=== PATIENT | male | born 1995 | race Caucasian/White ===

== ENCOUNTER 2016-09-09 22:33 | Emergency (ER) | payer OTHER ==
--- NOTE | 2016-09-10 00:13 | ED ---
Skin/Abscess/FB HPI - General Chief complaint: Skin/Abscess/Foreign Body Stated complaint: Male Time Seen by Provider: 09/09/16 23:54 Source: patient, RN notes reviewed Mode of arrival: ambulatory Limitations: no limitations - History of Present Illness Initial comments: 21-year-old male presents emergency Department chief complaint rectal problem. Patient states that he felt was abnormal with his elbow down her leg. Patient states he sat down and felt a bug crawled up slightly into his whole. Patient states he just felt some irritation, itching that region. Patient states this only started today and has not had any ongoing itching at nighttime. He has no history of worse. Patient denies abdominal pain, rectal bleeding, dysuria, hematuria. Denies any fevers or chills. - Related Data Previous Rx's Medication Instructions Recorded Hydrocortisone [Anusol-Hc] 1 applic RECTAL BID #30 gm 09/10/16 Allergies Allergy/AdvReac Type Severity Reaction Status Date / Time No Known Allergies Allergy Verified 09/09/16 23:25 Review of Systems ROS Statement: Those systems with pertinent positive or pertinent negative responses have been documented in the HPI. ROS Other: All systems not noted in ROS Statement are negative. Past Medical History Past Medical History: No Reported History History of Any Multi-Drug Resistant Organisms: None Reported Past Surgical History: No Surgical Hx Reported Past Psychological History: No Psychological Hx Reported Smoking Status: Current every day smoker Past Alcohol Use History: None Reported Past Drug Use History: None Reported General Exam Limitations: no limitations General appearance: alert, in no apparent distress Respiratory exam: Present: normal lung sounds bilaterally. Absent: respiratory distress, wheezes, rales, rhonchi, stridor Cardiovascular Exam: Present: regular rate, normal rhythm, normal heart sounds. Absent: systolic murmur, diastolic murmur, rubs, gallop, clicks GI/Abdominal exam: Present: soft, normal bowel sounds. Absent: distended, tenderness, guarding, rebound, rigid Rectal exam: Present: hemorrhoids, other (No foreign bodies no insects noted). Absent: normal inspection (Appears to be a small tear in the 12 o'clock position ), mass, tenderness Course Vital Signs 09/09/16 22:45 Temperature 98.0 F Pulse Rate 125 H Respiratory 20 Rate Blood Pressure 120/63 O2 Sat by Pulse 98 Oximetry Medical Decision Making - Medical Decision Making 21-year-old male present emergency department for rectal palm. Patient believed that he had something in his rectum. Patient's exam was negative for this. Patient does have a small hemorrhage small fissure-type structure. Patient will be given Anusol return parameters were discussed. Disposition Clinical Impression: Rectal itching, External hemorrhoid Disposition: HOME SELF-CARE Condition: Stable Instructions: Hemorrhoids (ED) Additional Instructions: Please return to the Emergency Department if symptoms worsen or any other concerns. Prescriptions: Hydrocortisone [Anusol-Hc] 1 applic RECTAL BID #30 gm Referrals: Maricarmen Vivas MD [Primary Care Provider] - 1-2 days Time of Disposition: 00:13
[2016-09-10 00:56] VITALS: BP 109/70; PULSE 84; RESP 18; TEMP 98.3
== END 2016-09-10 00:55 | disposition home or self-care (01) ==
LOC: EC 22:33
DX: K64.4 Residual hemorrhoidal skin tags (principal); R29.898 Other symptoms and signs involving the musculoskeletal system; F17.200 Nicotine dependence, unspecified, uncomplicated
CPT/HCPCS: 99283

== ENCOUNTER 2018-08-31 14:41 | Emergency (ER) | payer OTHER ==
[2018-08-31 14:45] VITALS: BP 112/71; PULSE 88; RESP 16; TEMP 97.9
--- NOTE | 2018-08-31 15:11 | XR ---
EXAMINATION TYPE: XR knee complete RT DATE OF EXAM: 08/31/2018 CLINICAL HISTORY: Right knee popping injury with pain. TECHNIQUE: Three views of the right knee are obtained. COMPARISON: Right knee x-ray July 10, 2011. FINDINGS: There is no acute fracture/dislocation evident in right knee. The tri-compartment joint s paces appear within normal limits. Overlying clothing or enhance material is seen at distal femur lev el. IMPRESSION: There is no acute fracture or dislocation in the right knee.
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
== END 2018-08-31 15:50 | disposition home or self-care (01) ==
LOC: EC 14:41
DX: M23.8X1 Other internal derangements of right knee (principal); F17.200 Nicotine dependence, unspecified, uncomplicated
CPT/HCPCS: 73562; 99284; L1830

== ENCOUNTER 2018-09-15 16:49 | Emergency (ER) | payer OTHER ==
[2018-09-15 17:14] VITALS: BP 125/80; PULSE 79; RESP 18; TEMP 98.4
--- NOTE | 2018-09-15 17:38 | ED ---
General Adult HPI - General Chief complaint: Extremity Injury, Upper Stated complaint: Arm numb/donated blood yesterday Time Seen by Provider: 09/15/18 17:14 Source: patient, RN notes reviewed, old records reviewed Mode of arrival: ambulatory Limitations: no limitations - History of Present Illness Initial comments: 23-year-old male patient with no pertinent past medical history presents to ED with pain in his right antecubital region. Patient reports that yesterday he donated plasma. Patient reports that after plasma donation he had some mild swelling and bruising at the location of the IV. Pt states that today he has a mild amount of pain in this region, but says the swelling and brusing have improved. Pt denies any other complaints. Pt has full active ROM of hand, full sensation. Systemic: Pt denies fatigue, myalgia, fever/chills, rash. Pt denies weakness, night sweats, weight loss. Neuro: Pt denies headache, visual disturbances, syncope or pre-syncope. HEENT: Pt denies ocular discharge or irritation, otalgia, rhinorrhea, pharyngitis or notable lymphadenopathy. Cardiopulmonary: Pt denies chest pain, SOB, heart palpitations, dyspnea on exertion. Abdominal/GI: Pt denies abdominal pain, n/v/d. : Pt denies dysuria, burning w/ urination, frequency/urgency. Denies new onset urinary or bowel incontinence. MSK: Pt denies myalgia, loss of strength or function in extremities. Neuro: Pt denies new onset weakness, paresthesias. - Related Data Previous Rx's Medication Instructions Recorded Hydrocortisone [Anusol-Hc] 1 applic RECTAL BID #30 gm 09/10/16 Ibuprofen 600 mg PO TID #20 tablet 08/31/18 Allergies Allergy/AdvReac Type Severity Reaction Status Date / Time No Known Allergies Allergy Verified 08/31/18 14:45 Review of Systems ROS Statement: Those systems with pertinent positive or pertinent negative responses have been documented in the HPI. ROS Other: All systems not noted in ROS Statement are negative. Past Medical History Past Medical History: No Reported History History of Any Multi-Drug Resistant Organisms: None Reported Past Surgical History: No Surgical Hx Reported Past Psychological History: No Psychological Hx Reported Smoking Status: Current every day smoker Past Alcohol Use History: Occasional Past Drug Use History: None Reported General Exam - General Exam Comments Initial Comments: Constitutional: NAD, AOX3, Pt has pleasant affect. HEENT: NC/AT, trachea midline, neck supple, no lymphadenopathy. Posterior pharynx non erythematous, without exudates. External ears appear normal, without discharge. Mucous membranes moist. Eyes PERRLA, EOM intact. There is no scleral icterus. No pallor noted. Cardiopulmonary: RRR, no murmurs, rubs or gallops, no JVD noted. Lungs CTAB in anterior and posterior mackay. No peripheral edema. Abdominal exam: Abdomen soft and non-distended. Abdomen non-tender to palpation in all 4 quadrants. Bowel sounds active in LLQ. No hepatosplenomegaly. No ecchymosis Neuro: CN II-XII grossly intact. No nuchal rigidity. MSK: Mild amount of ecchymoses noted in right antecubital region. No erythema, no edema, no palpable cords. Radial pulse +2. Sensation intact. Milk Condenser strength 5 out 5. No posterior calf tenderness bilaterally, homans sign negative bilaterally. Posterior tibialis and radial pulse +2 bilaterally. Sensation int act in upper and lower extremities. Full active ROM in upper and lower extremities, 5/5 stregnth. Limitations: no limitations Course Vital Signs 09/15/18 17:11 Temperature 98.4 F Pulse Rate 79 Respiratory 18 Rate Blood Pressure 125/80 O2 Sat by Pulse 100 Oximetry Medical Decision Making - Medical Decision Making 23-year-old male patient with no pertinent past medical history presents to ED with pain in his right antecubital region. Patient reports that yesterday he donated plasma. Patient reports that after plasma donation he had some mild swelling and bruising at the location of the IV. Pt states that today he has a mild amount of pain in this region, but says the swelling and brusing have improved. Pt denies any other complaints. Pt has full active ROM of hand, full sensation. Pt VSS, afebrile. Physical exam displayed: Mild amount of ecchymoses noted in right antecubital region. No erythema, no edema, no palpable cords. Radial pulse +2. Sensation intact. Milk Condenser strength 5 out 5. Patient will be discharged, will advise use warm compresses on region. Pt will continue to monitor, will return to ER if condition worsens in anyway. Disposition Clinical Impression: Ecchymosis of forearm Disposition: HOME SELF-CARE Condition: Stable Instructions (If sedation given, give patient instructions): Ecchymosis (ED) Additional Instructions: Patient to adhere to previously discussed treatment plan as directed. Patient to follow up with PCP in 1-2 days. Patient to return to ED if symptoms do not improve. May use warm compress. Patient continue to monitor. Please return to ER if conditions worsen anyway including but not limited to redness, swelling, worsening pain, decreased range of motion , significant numbness and tingling. Is patient prescribed a controlled substance at d/c from ED?: No Referrals: Maricarmen Vivas MD [Primary Care Provider] - 1-2 days
== END 2018-09-15 17:40 | disposition home or self-care (01) ==
LOC: EC 16:49
DX: T80.89XA Other complications following infusion, transfusion and therapeutic injection, initial encounter (principal); F17.200 Nicotine dependence, unspecified, uncomplicated; Y84.8 Other medical procedures as the cause of abnormal reaction of the patient, or of later complication, without mention of misadventure at the time of the procedure
CPT/HCPCS: 99283

== ENCOUNTER 2018-11-29 15:22 | Emergency (ER) | payer OTHER ==
--- NOTE | 2018-11-29 16:22 | XR ---
EXAMINATION TYPE: XR chest 2V DATE OF EXAM: 11/29/2018 COMPARISON: 11/17/2012 HISTORY: 23-year-old male with left-sided chest pain TECHNIQUE: PA and lateral views FINDINGS: The cardiomediastinal silhouette, aorta, and pulmonary vasculature are within normal limits. Mild per ibronchial cuffing is noted. No consolidation or pleural effusion. IMPRESSION: Mild peribronchial cuffing could reflect bronchitis or asthma. Otherwise, no acute cardiopulmonary pr ocess.
[2018-11-29] MEDS ORDERED: predniSONE 50 MG TAB PO STA (17:42)
[2018-11-29] MEDS ORDERED: IPRATROPIUM-ALBUTEROL 3 ML NEB INHALATION STA (17:42)
[2018-11-29] MEDS ORDERED: KETOROLAC 60 MG/2 ML VIAL IM STA (17:43)
[2018-11-29 18:40] LABS: Basophils % (A) 1 %; Eosinophils # (A) 0.2 k/uL (0-0.7); Eosinophils % (A) 2 %; HCT 39.3 % (39.0-53.0); Lymphocytes # (A) 2.6 k/uL (1.0-4.8); Lymphocytes % (A) 29 %; MCH 28.8 pg (25.0-35.0); MCV 87.3 fL (80.0-100.0); Mean Platelet Volume 6.5; Monocytes # (A) 0.5 k/uL (0-1.0); Monocytes % (A) 5 %; Neutrophils # (A) 5.3 k/uL (1.3-7.7); Neutrophils % (A) 60 %; Platelet Count 242 k/uL (150-450); RDW 13.8 % (11.5-15.5); WBC 8.8 k/uL (3.8-10.6)
[2018-11-29 18:57] LABS: African American GFR (CKD) >90 (>60 ml/min/1.73 sqM); Anion Gap 5 mmol/L; Blood Urea Nitrogen 6 mg/dL (9-20); Calcium 8.6 mg/dL (8.4-10.2); Carbon Dioxide 31 mmol/L (22-30); Chloride 102 mmol/L (98-107); Glucose 108 mg/dL (74-99); Potassium 3.9 mmol/L (3.5-5.1); Sodium 138 mmol/L (137-145)
--- NOTE | 2018-11-29 19:55 | ED ---
URI HPI - General Chief Complaint: Upper Respiratory Infection Stated Complaint: rib & chest pain/fever Time Seen by Provider: 11/29/18 16:00 Source: patient Mode of arrival: ambulatory Limitations: no limitations - History of Present Illness Initial Comments: The patient is a 23-year-old male who presents to emergency room with complaint of a pleuritic chest pain. The patient states for the past several days he's had shortness of breath and wheezing. He is an asthmatic. States that he does not have any albuterol medicine left in order to take a nebulizer treatment. States that he has been progressively getting worse. Today he developed a chest pain is located on the left side of his chest. It is worse with inspiration. States that he will have such significant coughing that he will have posttussive emesis. He denies production of phlegm. Admits to chills and fevers. No sick contacts or recent travel. Denies hemoptysis. Denies ripping or tearing sensation to his back. Denies any abdominal pain. Admits that mother has a history of DVTs. Denies headache, neck pain, abdominal pain or changes in his bowel or bladder habits. There are no other alleviating, precipitating or modifying factors - Related Data Home Medications Medication Instructions Recorded Confirmed Ibuprofen [Motrin Ib] 400 mg PO Q6H PRN 11/29/18 11/29/18 Oxymetazoline 0.05% Nasl [place] 1 spray EA NOSTRIL DAILY PRN 11/29/18 11/29/18 [Afrin 0.05% Nasal [place]] Previous Rx's Medication Instructions Recorded Acetaminophen-Codeine 300-30mg 1 tab PO Q6H PRN #8 tablet 11/29/18 [Tylenol #3] Albuterol Inhaler [Ventolin Hfa 1 - 2 puff INHALATION RT-Q6H PRN 11/29/18 Inhaler] #1 inhaler Albuterol Nebulized [Ventolin 2.5 mg INHALATION Q4H PRN #25 nebu 11/29/18 Nebulized] predniSONE 20 mg PO BID 5 Days #10 tab 11/29/18 Allergies Allergy/AdvReac Type Severity Reaction Status Date / Time No Known Allergies Allergy Verified 11/29/18 18:05 Review of Systems ROS Statement: Those systems with pertinent positive or pertinent negative responses have been documented in the HPI. ROS Other: All systems not noted in ROS Statement are negative. Past Medical History Past Medical History: No Reported History History of Any Multi-Drug Resistant Organisms: None Reported Past Surgical History: No Surgical Hx Reported Past Psychological History: No Psychological Hx Reported Smoking Status: Current every day smoker Past Alcohol Use History: Occasional Past Drug Use History: Marijuana General Exam Limitations: no limitations General appearance: alert, in no apparent distress Head exam: Present: atraumatic, normocephalic, normal inspection Eye exam: Present: normal appearance, PERRL, EOMI. Absent: scleral icterus, conjunctival injection, periorbital swelling ENT exam: Present: normal exam, mucous membranes moist Neck exam: Present: normal inspection. Absent: tenderness, meningismus, lymphadenopathy Respiratory exam: Present: normal lung sounds bilaterally, chest wall tenderness, other (poor inspiratory effort. Very shallow breathing). Absent: respiratory distress, wheezes, rales, rhonchi, stridor Cardiovascular Exam: Present: regular rate, normal rhythm, normal heart sounds. Absent: systolic murmur, diastolic murmur, rubs, gallop, clicks GI/Abdominal exam: Present: soft, normal bowel sounds. Absent: distended, tenderness, guarding, rebound, rigid Extremities exam: Present: normal inspection, full ROM, normal capillary refill. Absent: tenderness, pedal edema, joint swelling, calf tenderness Back exam: Present: normal inspection Neurological exam: Present: alert, oriented X3, CN II-XII intact Psychiatric exam: Present: normal affect, normal mood Skin exam: Present: warm, dry, intact, normal color. Absent: rash Course Vital Signs 11/29/18 11/29/18 11/29/18 15:41 19:18 19:31 Temperature 98.5 F Pulse Rate 96 96 91 Respiratory 18 Rate Blood Pressure 108/73 O2 Sat by Pulse 98 Oximetry 11/29/18 11/29/18 19:41 20:24 Temperature 98.3 F Pulse Rate 92 Respiratory 20 18 Rate Blood Pressure 110/76 O2 Sat by Pulse 98 Oximetry Medical Decision Making - Medical Decision Making The patient was placed into room 21. He does receive a DuoNeb breathing treatment. He also recieved Toradol 30 mg IM and 60 mg Prednisone PO. A chest x- ray which was performed demonstrates bronchitis versus asthma. I did conduct laboratory studies due to the patient's pleuritic chest pain with family history of DVT. The patient does have a negative d-dimer. He is PERC negative. This is discussed with the patient. I did discuss diagnosis, differential and treatment options. At this time patient is requesting something stronger for pain at home. He'll be given a limited supply of Tylenol threes. I did discuss side effect profile. The patient does sign an opiate start talking form. He will given an additional 5 day prescription for prednisone. I also refilled the patient's albuterol for his nebulizer. He will receive an albuterol inhaler p rescription. He is reevaluated and admits to improvement in his symptoms. He is to avoid taking NSAIDS with the steroids. He is to follow-up with his primary care physician within 2-4 days. Return to the ER for any new or worsening symptoms. The patient was in agreement to the treatment plan, he was discharged home in stable condition. - Differential Diagnosis acute asthma exacerbation, pleurisy, URI, acute chest pain - Lab Data Result diagrams: 11/29/18 18:15 11/29/18 18:15 Lab Results 11/29/18 11/29/18 11/29/18 Range/Units 18:15 18:15 18:15 WBC 8.8 (3.8-10.6) k/uL RBC 4.50 (4.30-5.90) m/uL Hgb 13.0 (13.0-17.5) gm/dL Hct 39.3 (39.0-53.0) % MCV 87.3 (80.0-100.0) fL MCH 28.8 (25.0-35.0) pg MCHC 33.0 (31.0-37.0) g/dL RDW 13.8 (11.5-15.5) % Plt Count 242 (150-450) k/uL Neutrophils % 60 % Lymphocytes % 29 % Monocytes % 5 % Eosinophils % 2 % Basophils % 1 % Neutrophils # 5.3 (1.3-7.7) k/uL Lymphocytes # 2.6 (1.0-4.8) k/uL Monocytes # 0.5 (0-1.0) k/uL Eosinophils # 0.2 (0-0.7) k/uL Basophils # 0.0 (0-0.2) k/uL D-Dimer 0.28 (<0.60) mg/L FEU Sodium 138 (137-145) mmol/L Potassium 3.9 (3.5-5.1) mmol/L Chloride 102 (98-107) mmol/L Carbon Dioxide 31 H (22-30) mmol/L Anion Gap 5 mmol/L BUN 6 L (9-20) mg/dL Creatinine 0.53 L (0.66-1.25) mg/dL Est GFR (CKD-EPI)AfAm >90 (>60 ml/min/1.73 sqM) Est GFR (CKD-EPI)NonAf >90 (>60 ml/min/1.73 sqM) Glucose 108 H (74-99) mg/dL Calcium 8.6 (8.4-10.2) mg/dL - EKG Data EKG Comments: EKG demonstrates a normal sinus rhythm with a ventricular rate of 75. TN interval 110. QRS 82. QTC 395. There are no ST segment elevations or depressions concerning for ischemic changes. Disposition Clinical Impression: Bronchitis, Cough, Asthmatic bronchitis Disposition: HOME SELF-CARE Condition: Stable Instructions (If sedation given, give patient instructions): Upper Respiratory Infection (ED) Additional Instructions: Follow-up with your primary care doctor in 2-4 days. Return to the emergency department for any new or worsening symptoms Prescriptions: predniSONE 20 mg PO BID 5 Days #10 tab Acetaminophen-Codeine 300-30mg [Tylenol #3] 1 tab PO Q6H PRN #8 tablet PRN Reason: pain Albuterol Inhaler [Ventolin Hfa Inhaler] 1 - 2 puff INHALATION RT-Q6H PRN #1 inhaler PRN Reason: Cough Albuterol Nebulized [Ventolin Nebulized] 2.5 mg INHALATION Q4H PRN #25 nebu PRN Reason: difficulty in breathing Is patient prescribed a controlled substance at d/c from ED?: Yes When asked, does pt state using other controlled substances?: No If prescribed controlled substance>3 days was MAPS reviewed?: Prescribed <3 Days If opioid is for acute pain is fill amount 7 days or less?: Yes If Rx opioid, was Start Talking consent form obtained?: Yes Referrals: Maricarmen Vivas MD [Primary Care Provider] - 1-2 days Time of Disposition: 19:55
[2018-11-29 20:25] VITALS: BP 110/76; PULSE 92; RESP 18; TEMP 98.3
== END 2018-11-29 20:25 | disposition home or self-care (01) ==
LOC: EC 15:22
DX: J45.909 Unspecified asthma, uncomplicated (principal); F17.200 Nicotine dependence, unspecified, uncomplicated
CPT/HCPCS: 36415; 94640; 93005; 85379; 80048; 85025; 71046; 99285; 96372; J1885; J7512

== ENCOUNTER 2019-01-29 10:25 | Emergency (ER) | payer OTHER ==
[2019-01-29 10:41] VITALS: RESP 18; TEMP 97.9
[2019-01-29] MEDS ORDERED: MECLIZINE 12.5 MG TAB PO STA (10:53)
[2019-01-29] MEDS ORDERED: ACETAMINOPHEN TAB 500 MG TAB PO STA (11:36)
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
[2019-01-29] MEDS ORDERED: KETOROLAC 30 MG/ML 1 ML VIAL IM STA (11:59)
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
[2019-01-29 12:40] VITALS: BP 131/80; PULSE 94
== END 2019-01-29 12:40 | disposition home or self-care (01) ==
LOC: EC 10:25
DX: S02.5XXA Fracture of tooth (traumatic), initial encounter for closed fracture (principal); M40.292 Other kyphosis, cervical region; F17.200 Nicotine dependence, unspecified, uncomplicated; V18.0XXA Pedal cycle driver injured in noncollision transport accident in nontraffic accident, initial encounter; Y93.55 Activity, bike riding; Y92.89 Other specified places as the place of occurrence of the external cause
CPT/HCPCS: 72125; 70486; 70450; 99283; 96372; J1885

== ENCOUNTER 2019-07-31 16:42 | Emergency (ER) | payer OTHER ==
[2019-07-31 16:47] VITALS: BP 142/83; PULSE 89; RESP 16; TEMP 98.5
[2019-07-31] MEDS ORDERED: DOXYCYCLINE 100 MG CAP PO STA (17:02)
[2019-07-31] MEDS ORDERED: ACET/COD 300 MG/30 MG STARTER PACK 6 TAB BTL PO STA (17:09)
--- NOTE | 2019-07-31 17:10 | ED ---
ENT HPI - General Chief complaint: ENT Stated complaint: Facial Swelling Time Seen by Provider: 07/31/19 16:48 Source: patient Mode of arrival: ambulatory Limitations: no limitations - History of Present Illness Initial comments: Patient is 24-year-old male presents emergency Department with a chief complaint of facial swelling. States the symptoms began about 3 days ago when he had a small pimple on his left eyebrow that gradually increased in severity. Patient denies any fevers or chills. Patient states his left nostril is not patent. Denies any headaches. Denies any pain with extraocular movements. Denies any blurry vision or discharge from the eye. Denies any sinus discharge. Denies taking any medication to alleviate the pain. - Related Data Home Medications Medication Instructions Recorded Confirmed Ibuprofen [Motrin Ib] 400 mg PO Q6H PRN 11/29/18 11/29/18 Oxymetazoline 0.05% Nasl [place] 1 spray EA NOSTRIL DAILY PRN 11/29/18 11/29/18 [Afrin 0.05% Nasal [place]] Previous Rx's Medication Instructions Recorded Acetaminophen-Codeine 300-30mg 1 tab PO Q6H PRN #8 tablet 11/29/18 [Tylenol #3] Albuterol Inhaler [Ventolin Hfa 1 - 2 puff INHALATION RT-Q6H PRN 11/29/18 Inhaler] #1 inhaler Albuterol Nebulized [Ventolin 2.5 mg INHALATION Q4H PRN #25 nebu 11/29/18 Nebulized] predniSONE [Deltasone] 20 mg PO BID 5 Days #10 tab 11/29/18 Penicillin V Potassium [Pen Vee K] 500 mg PO Q6H 10 Days #40 tablet 01/29/19 Doxycycline Monohydrate [Monodox] 100 mg PO Q12HR #20 cap 07/31/19 Allergies Allergy/AdvReac Type Severity Reaction Status Date / Time No Known Allergies Allergy Verified 07/31/19 16:47 Review of Systems ROS Statement: Those systems with pertinent positive or pertinent negative responses have been documented in the HPI. ROS Other: All systems not noted in ROS Statement are negative. Past Medical History Past Medical History: No Reported History History of Any Multi-Drug Resistant Organisms: None Reported Past Surgical History: No Surgical Hx Reported Past Psychological History: No Psychological Hx Reported Smoking Status: Current every day smoker Past Alcohol Use History: Occasional Past Drug Use History: Marijuana General Exam Limitations: no limitations General appearance: alert, in no apparent distress Head exam: Present: atraumatic, normocephalic, normal inspection, other (Left- sided facial swelling around the left eye eye and maxillary sinus.) Eye exam: Present: normal appearance, PERRL, EOMI Pupils: Present: normal accommodation ENT exam: Present: normal exam, normal oropharynx (No oral lesions. Mucous mucosa on the left side is soft and nontender), mucous membranes moist, TM's normal bilaterally, normal external ear exam Neck exam: Present: normal inspection, full ROM Respiratory exam: Present: normal lung sounds bilaterally Cardiovascular Exam: Present: regular rate, normal rhythm, normal heart sounds Extremities exam: Present: normal inspection, full ROM Back exam: Present: normal inspection, full ROM Neurological exam: Present: alert, oriented X3 Psychiatric exam: Present: normal affect, normal mood Skin exam: Present: warm, dry, intact, normal color Course Vital Signs 07/31/19 16:44 Temperature 98.5 F Pulse Rate 89 Respiratory 16 Rate Blood Pressure 142/83 O2 Sat by Pulse 99 Oximetry Medical Decision Making - Medical Decision Making Patient is a 24-year-old male presenting to the emergency room with a chief complaint of facial swelling. On exam patient does appear to have a small healing pimple on the left eyebrow that is most likely the next inoculation point which caused cellulitic changes around the left eye and left side of the face in the maxillary sinus. The area is slightly erythematous. Patient denies any pain with extraocular movements. PERRLA. And went to cover for MRSA with doxycycline. Patient given a single dose in the [place] discharged with a 10 day course of tetracycline. Vitals are stable. No dysphagia or odontophagia. Patient advised to take Benadryl to decrease some of the swelling and apply ice compress to the region. Return parameters were thoroughly discussed with patient was understanding and agreeable. Case discussed with physician. Disposition Clinical Impression: Swelling of left side of face Disposition: HOME SELF-CARE Condition: Stable Instructions (If sedation given, give patient instructions): Abscess (ED) Additional Instructions: Take prescribed medication as directed. Take [id number] Benadryl. Apply ice compress. Return to emergency department if symptoms worsen. Prescriptions: Doxycycline Monohydrate [Monodox] 100 mg PO Q12HR #20 cap Is patient prescribed a controlled substance at d/c from ED?: No Referrals: None,Stated [Primary Care Provider] - 1-2 days Time of Disposition: 17:10
== END 2019-07-31 17:19 | disposition home or self-care (01) ==
LOC: EC 16:42
DX: R22.0 Localized swelling, mass and lump, head (principal); L53.9 Erythematous condition, unspecified; F17.200 Nicotine dependence, unspecified, uncomplicated
CPT/HCPCS: 99283

== ENCOUNTER 2019-08-01 17:24 | Emergency (ER) | payer OTHER ==
[2019-08-01] MEDS ORDERED: AMPICILLIN-SULBACTAM 1.5 GM in SODIUM CHLORIDE 0.9% 50 ML IVPB STA (18:14)
[2019-08-01] MEDS ORDERED: SODIUM CHLORIDE 0.9% 1,000 ML IV SCH (18:15)
[2019-08-01] MEDS ORDERED: SODIUM CHLORIDE 0.9% 500 ML 500 ML IV SCH (18:15)
--- NOTE | 2019-08-01 18:21 | ED ---
General Adult HPI - General Chief complaint: Recheck/Abnormal Lab/Rx Stated complaint: facial swelling-revisit Time Seen by Provider: 08/01/19 17:48 Source: patient, RN notes reviewed Mode of arrival: ambulatory Limitations: no limitations - History of Present Illness Initial comments: Patient is a pleasant 24-year-old male presenting to the emergency Department with left facial swelling. Patient was seen yesterday. Symptoms have been occurring for several days. Patient states the swelling was more on the forehead however now is starting to proceed down the face. Patient states he is able to open his eyes however is difficult. Patient states there is discomfort. Patient believes he may have had a fever yesterday. No fevers today. No sore throat or cough or difficulty breathing. Patient has some mild right ear discomfort. - Related Data Home Medications Medication Instructions Recorded Confirmed Ibuprofen [Motrin Ib] 400 mg PO Q6H PRN 11/29/18 11/29/18 Oxymetazoline 0.05% Nasl [place] 1 spray EA NOSTRIL DAILY PRN 11/29/18 11/29/18 [Afrin 0.05% Nasal [place]] Previous Rx's Medication Instructions Recorded Acetaminophen-Codeine 300-30mg 1 tab PO Q6H PRN #8 tablet 11/29/18 [Tylenol #3] Albuterol Inhaler [Ventolin Hfa 1 - 2 puff INHALATION RT-Q6H PRN 11/29/18 Inhaler] #1 inhaler Albuterol Nebulized [Ventolin 2.5 mg INHALATION Q4H PRN #25 nebu 11/29/18 Nebulized] predniSONE [Deltasone] 20 mg PO BID 5 Days #10 tab 11/29/18 Penicillin V Potassium [Pen Vee K] 500 mg PO Q6H 10 Days #40 tablet 01/29/19 Doxycycline Monohydrate [Monodox] 100 mg PO Q12HR #20 cap 07/31/19 Allergies Allergy/AdvReac Type Severity Reaction Status Date / Time No Known Allergies Allergy Verified 08/01/19 17:31 Review of Systems ROS Statement: Those systems with pertinent positive or pertinent negative responses have been documented in the HPI. ROS Other: All systems not noted in ROS Statement are negative. Constitutional: Reports: as per HPI, chills Eyes: Denies: eye pain, vision change ENT: Reports: ear pain. Denies: dental pain Respiratory: Denies: cough Cardiovascular: Denies: chest pain Endocrine: Denies: fatigue Gastrointestinal: Denies: abdominal pain Genitourinary: Denies: dysuria Musculoskeletal: Denies: back pain Skin: Reports: as per HPI Neurological: Denies: headache Past Medical History Past Medical History: No Reported History History of Any Multi-Drug Resistant Organisms: None Reported Past Surgical History: No Surgical Hx Reported Past Psychological History: No Psychological Hx Reported Smoking Status: Current every day smoker Past Alcohol Use History: Occasional Past Drug Use History: Marijuana General Exam Limitations: no limitations General appearance: alert, in no apparent distress Head exam: Present: atraumatic Eye exam: Present: PERRL, EOMI, periorbital swelling (Mild left periorbital swelling however patient is able to open his eye. Left medial eyebrow with small abscess. No pain with extraocular muscle testing.) ENT exam: Present: normal oropharynx, TM's normal bilaterally, other (Poor dentition. No abscess. Mild to moderate upper lip swelling. Mild swelling bilateral maxillary region with mild tenderness.) Neck exam: Present: normal inspection Respiratory exam: Present: normal lung sounds bilaterally Cardiovascular Exam: Present: regular rate, normal rhythm GI/Abdominal exam: Present: soft. Absent: tenderness Extremities exam: Present: normal inspection Neurological exam: Present: alert, CN II-XII intact Psychiatric exam: Present: normal affect, normal mood Skin exam: Present: erythema ( mild left facial erythema) Course Vital Signs 08/01/19 08/01/19 17:29 19:38 Temperature 97.8 F Pulse Rate 133 H 95 Respiratory 20 16 Rate Blood Pressure 95/68 126/80 O2 Sat by Pulse 98 97 Oximetry Procedures - Incision & Drainage Consent Obtained: verbal consent Site: face I&D Cleaning Method: Betadine Needle Aspiration Performed?: Yes I&D Drainage Obtained: Pus Culture Obtained?: Yes Patient Tolerated Procedure: well, no complications Medical Decision Making - Medical Decision Making Patient reevaluated and slightly improved. Patient updated on results. Culture obtained. Patient offered admission however prefers to go home and denies admission. Patient is agreeable to close follow-up and agreeable to return if symptoms worsen. - Lab Data Result diagrams: 08/01/19 18:49 08/01/19 18:49 Lab Results 08/01/19 08/01/19 08/01/19 Range/Units 18:49 18:49 18:49 WBC 11.7 H (3.8-10.6) k/uL RBC 5.24 (4.30-5.90) m/uL Hgb 14.6 (13.0-17.5) gm/dL Hct 43.9 (39.0-53.0) % MCV 83.8 (80.0-100.0) fL MCH 27.9 (25.0-35.0) pg MCHC 33.2 (31.0-37.0) g/dL RDW 12.8 (11.5-15.5) % Plt Count 256 (150-450) k/uL Neutrophils % 64 % Lymphocytes % 26 % Monocytes % 5 % Eosinophils % 3 % Basophils % 1 % Neutrophils # 7.5 (1.3-7.7) k/uL Lymphocytes # 3.0 (1.0-4.8) k/uL Monocytes # 0.5 (0-1.0) k/uL Eosinophils # 0.4 (0-0.7) k/uL Basophils # 0.1 (0-0.2) k/uL Sodium 136 L (137-145) mmol/L Potassium 4.2 (3.5-5.1) mmol/L Chloride 99 (98-107) mmol/L Carbon Dioxide 29 (22-30) mmol/L Anion Gap 8 mmol/L BUN 9 (9-20) mg/dL Creatinine 0.57 L (0.66-1.25) mg/dL Est GFR (CKD-EPI)AfAm >90 (>60 ml/min/1.73 sqM) Est GFR (CKD-EPI)NonAf >90 (>60 ml/min/1.73 sqM) Glucose 92 (74-99) mg/dL Plasma Lactic Acid [place] 0.8 (0.7-2.0) mmol/L Calcium 9.5 (8.4-10.2) mg/dL Total Bilirubin 0.5 (0.2-1.3) mg/dL AST 23 (17-59) U/L ALT 11 (4-49) U/L Alkaline Phosphatase 87 (38-126) U/L Total Protein 6.9 (6.3-8.2) g/dL Albumin 4.5 (3.5-5.0) g/dL Disposition Clinical Impression: Cellulitis, face Disposition: HOME SELF-CARE Condition: Stable Instructions (If sedation given, give patient instructions): Cellulitis (ED) Additional Instructions: Please follow-up with primary care physician in the next day or 2 for recheck. Have primary care physician check culture results. Continue antibiotics. Return for fever, increased swelling, increased pain, increased redness, worsening symptoms or other concerns. Is patient prescribed a controlled substance at d/c from ED?: No Referrals: Maricarmen Vivas MD [REFERRING] - 1-2 days Time of Disposition: 20:08
[2019-08-01 19:03] LABS: Basophils # (A) 0.1 k/uL (0-0.2); Basophils % (A) 1 %; Eosinophils # (A) 0.4 k/uL (0-0.7); Eosinophils % (A) 3 %; HCT 43.9 % (39.0-53.0); HGB 14.6 gm/dL (13.0-17.5); Lymphocytes % (A) 26 %; MCH 27.9 pg (25.0-35.0); MCHC 33.2 g/dL (31.0-37.0); MCV 83.8 fL (80.0-100.0); Mean Platelet Volume 7.2; Monocytes # (A) 0.5 k/uL (0-1.0); Monocytes % (A) 5 %; Neutrophils # (A) 7.5 k/uL (1.3-7.7); Neutrophils % (A) 64 %; Platelet Count 256 k/uL (150-450); RBC 5.24 m/uL (4.30-5.90); RDW 12.8 % (11.5-15.5); WBC 11.7 k/uL (3.8-10.6)
[2019-08-01 19:08] LABS: ALT 11 U/L (4-49); AST 23 U/L (17-59); African American GFR (CKD) >90 (>60 ml/min/1.73 sqM); Albumin 4.5 g/dL (3.5-5.0); Alkaline Phosphatase 87 U/L (38-126); Anion Gap 8 mmol/L; Blood Urea Nitrogen 9 mg/dL (9-20); Calcium 9.5 mg/dL (8.4-10.2); Carbon Dioxide 29 mmol/L (22-30); Chloride 99 mmol/L (98-107); Glucose 92 mg/dL (74-99); Non-African American GFR(CKD) >90 (>60 ml/min/1.73 sqM); Potassium 4.2 mmol/L (3.5-5.1); Sodium 136 mmol/L (137-145); Total Bilirubin 0.5 mg/dL (0.2-1.3); Total Protein 6.9 g/dL (6.3-8.2)
[2019-08-01 20:47] VITALS: BP 119/81; PULSE 77; RESP 18; TEMP 99.3
== END 2019-08-01 20:48 | disposition home or self-care (01) ==
LOC: EC 17:24
DX: L03.211 Cellulitis of face (principal); F17.200 Nicotine dependence, unspecified, uncomplicated; Z53.20 Procedure and treatment not carried out because of patient's decision for unspecified reasons
CPT/HCPCS: 36415; 80053; 83605; 85025; 87040; 87070; 87205; 87077; 87186; 99283; 10160; 96365; 96366; J0295

== ENCOUNTER 2019-11-29 12:56 | Emergency (ER) | payer OTHER ==
[2019-11-29 13:20] VITALS: BP 105/69; PULSE 70; RESP 18; TEMP 98.1
[2019-11-29] MEDS ORDERED: DIPH,PERTUS(ACELL)TETVAC-LF 0.5 ML VIAL IM ONE (14:39)
[2019-11-29] MEDS ORDERED: SULFAMETH-TMP DS STARTER PACK 2 TAB BTL PO STA (14:39)
[2019-11-29] MEDS ORDERED: SULFAMETHOX-TMP 800-160MG 1 EACH TAB PO STA (14:39)
[2019-11-29] MEDS ORDERED: LIDOCAINE 1% INJ 10MG/ML (20 ML MDV) SQ STA (14:42)
--- NOTE | 2019-11-29 14:56 | ED ---
General Adult HPI - General Chief complaint: Skin/Abscess/Foreign Body Stated complaint: bite on Buttocks Time Seen by Provider: 11/29/19 14:29 Source: patient, RN notes reviewed, old records reviewed Mode of arrival: ambulatory Limitations: physical limitation - History of Present Illness Initial comments: 24-year-old male patient received a chief complaint of abscess left gluteal region. Patient stated this began 2 days ago. States that he sat down and felt a pinch on the left gluteal region. Reports localized pain. Denies any definite fevers at home nausea or vomiting. denies any other complaints. Systemic: Pt denies fatigue, fever/chills. Pt denies weakness, night sweats, weight loss. Neuro: Pt denies headache, visual disturbances, syncope or pre-syncope. HEENT: Pt denies ocular discharge or irritation, otalgia, rhinorrhea, pharyngitis or notable lymphadenopathy. Cardiopulmonary: Pt denies chest pain, SOB, heart palpitations, dyspnea on exertion. Abdominal/GI: Pt denies abdominal pain, n/v/d. : Pt denies dysuria, burning w/ urination, frequency/urgency. Denies new onset urinary or bowel incontinence. MSK: Pt denies myalgia, loss of strength or function in extremities. Neuro: Pt denies new onset weakness, paresthesias. - Related Data Previous Rx's Medication Instructions Recorded Cephalexin [Keflex] 500 mg PO Q6HR 7 Days #28 cap 11/29/19 Sulfamethox-Tmp 800-160Mg [Bactrim 1 tab PO Q12HR 7 Days #14 tab 11/29/19 DS 800-160 mg] Allergies Allergy/AdvReac Type Severity Reaction Status Date / Time No Known Allergies Allergy Verified 11/29/19 14:55 Review of Systems ROS Statement: Those systems with pertinent positive or pertinent negative responses have been documented in the HPI. ROS Other: All systems not noted in ROS Statement are negative. Past Medical History Past Medical History: No Reported History History of Any Multi-Drug Resistant Organisms: None Reported Past Surgical History: No Surgical Hx Reported Past Psychological History: No Psychological Hx Reported Smoking Status: Current every day smoker Past Alcohol Use History: Occasional Past Drug Use History: None Reported General Exam - General Exam Comments Initial Comments: Constitutional: NAD, AOX3, Pt has pleasant affect. HEENT: NC/AT, trachea midline, neck supple. External ears appear normal, without discharge. Mucous membranes moist. EOM intact. There is no scleral icterus. No pallor noted. Cardiopulmonary: RRR, no murmurs, rubs or gallops, no JVD noted. Lungs CTAB in anterior and posterior mack[place]. No peripheral edema. Abdominal exam: Abdomen soft and non-distended. Abdomen non-tender to palpation in all 4 quadrants. Neuro: CN II-XII grossly intact. No nuchal rigidity. No raccon eyes, no rudolph sign MSK: 3x3 cm area of erythema on the left gluteal region. No streaking. Mild fluctuance noted. Incision and drainage was attempted in 2 regions which did not display any purulent drainage. Limitations: physical limitation Course Vital Signs 11/29/19 13:14 Temperature 98.1 F Pulse Rate 70 Respiratory 18 Rate Blood Pressure 105/69 O2 Sat by Pulse 98 Oximetry Procedures - Incision & Drainage Consent Obtained: verbal consent, written consent Indication: left glutal abscess Site: buttock (left) Size (cm): 3 Anesthetic Used: lidocaine 1% Amount (mLs): 3 I&D Cleaning Method: Chloroprep, Alcohol Wipe Scalpel Used: #11 I&D Drainage Obtained: Blood Culture Obtained?: No Patient Tolerated Procedure: well Medical Decision Making - Medical Decision Making 24-year-old male patient presents ED for evaluation of possible abscess left gluteal region. Physical exam displayed a fever at the region of erythema with some fluctuance noted. Incision and drainage was attempted did not display any purulent drainage. Patient will be discharged with close outpatient follow-up strict return precautions Keflex and Bactrim. Case discussed and pt seen by Dr. Padilla. Disposition Clinical Impression: Abscess Disposition: HOME SELF-CARE Condition: Stable Instructions (If sedation given, give patient instructions): Abscess (ED) Additional Instructions: Use warm compresses. Take antibiotics as directed. Follow-up with primary care provider tomorrow. If symptoms do not improve within 24-36 hours return to emergency department. If you start developing systemic symptoms like fevers and chills nausea and vomiting return to emergency department. Prescriptions: Sulfamethox-Tmp 800-160Mg [Bactrim DS 800-160 mg] 1 tab PO Q12HR 7 Days #14 tab Cephalexin [Keflex] 500 mg PO Q6HR 7 Days #28 cap Is patient prescribed a controlled substance at d/c from ED?: No Referrals: None,Stated [Primary Care Provider] - 1-2 days Maricarmen Vivas MD [REFERRING] - 1-2 days
[2019-11-29] MEDS ORDERED: CEPHALEXIN 500MG STARTER PACK 4 CAP BTL PO STA (15:19)
== END 2019-11-29 15:36 | disposition home or self-care (01) ==
LOC: EC 12:56
DX: L02.31 Cutaneous abscess of buttock (principal); Z23 Encounter for immunization; F17.200 Nicotine dependence, unspecified, uncomplicated
CPT/HCPCS: 90715; 90471; 99283; 10060; J2001

== ENCOUNTER 2019-12-07 17:22 | Emergency (ER) | payer OTHER ==
[2019-12-07] MEDS ORDERED: ONDANSETRON 4 MG/2 ML VIAL IVP STA (17:45)
[2019-12-07] MEDS ORDERED: SODIUM CHLORIDE 0.9% 1,000 ML IV STA (17:46)
[2019-12-07 17:58] LABS: Basophils # (A) 0.1 k/uL (0-0.2); Basophils % (A) 1 %; Eosinophils # (A) 0.3 k/uL (0-0.7); Eosinophils % (A) 3 %; HCT 43.6 % (39.0-53.0); HGB 14.3 gm/dL (13.0-17.5); Lymphocytes # (A) 4.5 k/uL (1.0-4.8); Lymphocytes % (A) 54 %; MCH 27.9 pg (25.0-35.0); MCHC 32.9 g/dL (31.0-37.0); MCV 84.8 fL (80.0-100.0); Monocytes # (A) 0.4 k/uL (0-1.0); Monocytes % (A) 4 %; Neutrophils % (A) 35 %; Platelet Count 251 k/uL (150-450); RBC 5.14 m/uL (4.30-5.90); RDW 12.6 % (11.5-15.5); WBC 8.5 k/uL (3.8-10.6)
[2019-12-07 18:08] LABS: ALT 18 U/L (4-49); AST 38 U/L (17-59); African American GFR (CKD) >90 (>60 ml/min/1.73 sqM); Albumin 5.1 g/dL (3.5-5.0); Alkaline Phosphatase 109 U/L (38-126); Anion Gap 14 mmol/L; Blood Urea Nitrogen 12 mg/dL (9-20); Carbon Dioxide 20 mmol/L (22-30); Chloride 101 mmol/L (98-107); Glucose 83 mg/dL (74-99); Non-African American GFR(CKD) >90 (>60 ml/min/1.73 sqM); Potassium 3.6 mmol/L (3.5-5.1); Sodium 135 mmol/L (137-145); Total Bilirubin 0.6 mg/dL (0.2-1.3); Total Protein 7.3 g/dL (6.3-8.2)
[2019-12-07 19:39] VITALS: TEMP 97.7
[2019-12-07 19:41] VITALS: BP 120/64; PULSE 71; RESP 19
--- NOTE | 2019-12-07 20:07 | ED ---
General Adult HPI - General Chief complaint: Syncope Stated complaint: Syncope Time Seen by Provider: 12/07/19 17:38 Source: patient, RN notes reviewed, old records reviewed Mode of arrival: wheelchair Limitations: no limitations - History of Present Illness Initial comments: 24-year-old male patient presents to ED for evaluation of brief syncopal episode. Patient reports that he has not eaten or drank in before he went to work. 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 Patient reportedly began to feel very lightheaded and became nauseous had mackay of nausea and vomiting. Patient reports that he went down on one knee to compose himself and may have had a brief loss of consciousness for 1-2 seconds. Patient reports that he was then aroused by his coworker and he woke up. Denies any trauma to his head or his neck. Patient is complaining of some generalized weakness but denies any focal area of pain. Eyes any other complaints. Systemic: Pt denies fatigue, fever/chills, rash. Pt denies weakness, night sweats, weight loss. Neuro: Pt denies headache, visual disturbances, pre-syncope. HEENT: Pt denies ocular discharge or irritation, otalgia, rhinorrhea, pharyngitis or notable lymphadenopathy. Cardiopulmonary: Pt denies chest pain, SOB, heart palpitations, dyspnea on exertion. Abdominal/GI: Pt denies abdominal pain, n/v/d. : Pt denies dysuria, burning w/ urination, frequency/urgency. Denies new onset urinary or bowel incontinence. MSK: Pt denies myalgia, loss of strength or function in extremities. Neuro: Pt denies new onset weakness, paresthesias. - Related Data Previous Rx's Medication Instructions Recorded Cephalexin [Keflex] 500 mg PO Q6HR 7 Days #28 cap 11/29/19 Sulfamethox-Tmp 800-160Mg [Bactrim 1 tab PO Q12HR 7 Days #14 tab 11/29/19 DS 800-160 mg] Allergies Allergy/AdvReac Type Severity Reaction Status Date / Time No Known Allergies Allergy Verified 12/07/19 19:19 Review of Systems ROS Statement: Those systems with pertinent positive or pertinent negative responses have been documented in the HPI. ROS Other: All systems not noted in ROS Statement are negative. Past Medical History Past Medical History: No Reported History History of Any Multi-Drug Resistant Organisms: None Reported Past Surgical History: No Surgical Hx Reported Past Psychological History: No Psychological Hx Reported Smoking Status: Current every day smoker Past Alcohol Use History: Occasional Past Drug Use History: None Reported General Exam - General Exam Comments Initial Comments: Constitutional: NAD, AOX3, Pt has pleasant affect. HEENT: NC/AT, trachea midline, neck supple, no lymphadenopathy. Posterior pharynx non erythematous, without exudates. External ears appear normal, without discharge. Mucous membranes moist. Eyes PERRLA, EOM intact. There is no scleral icterus. No pallor noted. Cardiopulmonary: RRR, no murmurs, rubs or gallops, no JVD noted. Lungs CTAB in anterior and posterior mackay. No peripheral edema. Abdominal exam: Abdomen soft and non-distended. Abdomen non-tender to palpation in all 4 quadrants. Bowel sounds active in LLQ. No hepatosplenomegaly. No ecchymosis Neuro: CN II-XII intact. No nuchal rigidity. No raccon eyes, no rudolph sign, no hemotympanum. No cervical spinal tenderness. MSK: No posterior calf tenderness bilaterally, homans sign negative bilaterally. Posterior tibialis and radial pulse +2 bilaterally. Sensation intact in upper and lower extremities. Full active ROM in upper and lower extremities, 5/5 stregnth. Left gluteal region examined, abscess has resolved. Limitations: no limitations Course Vital Signs 12/07/19 12/07/19 12/07/19 17:25 19:30 19:35 Temperature 97.9 F 97.7 F Pulse Rate 84 68 71 Respiratory 16 21 19 Rate Blood Pressure 99/63 104/91 120/64 O2 Sat by Pulse 100 98 97 Oximetry Medical Decision Making - Medical Decision Making 24-year-old male patient presents to ED for evaluation of brief syncopal episode. Patient vital signs are stable, afebrile. Physical exam did not display acute pathology. Neurologic exam is intact. Laboratory investigations are non-impressive. Patient was administered 1 L of normal saline. One dose of Zofran. Patient is feeling much improved. Is asymptomatic. Eating and drinking in the room. Walk able to walk around the department without issue. I did see patient for an abscess on his left gluteal area on 11/28. I did examine this region and it appears the abscess has resolved. EKG is nonischemic. Patient will be discharged with follow-up with primary care provider and will return to ER if condition worsens. Case discussed with Dr. Walter. - Lab Data Result diagrams: 12/07/19 17:51 12/07/19 17:47 Lab Results 12/07/19 12/07/19 Range/Units 17:47 17:51 WBC 8.5 (3.8-10.6) k/uL RBC 5.14 (4.30-5.90) m/uL Hgb 14.3 (13.0-17.5) gm/dL Hct 43.6 (39.0-53.0) % MCV 84.8 (80.0-100.0) fL MCH 27.9 (25.0-35.0) pg MCHC 32.9 (31.0-37.0) g/dL RDW 12.6 (11.5-15.5) % Plt Count 251 (150-450) k/uL Neutrophils % 35 % Lymphocytes % 54 % Monocytes % 4 % Eosinophils % 3 % Basophils % 1 % Neutrophils # 3.0 (1.3-7.7) k/uL Lymphocytes # 4.5 (1.0-4.8) k/uL Monocytes # 0.4 (0-1.0) k/uL Eosinophils # 0.3 (0-0.7) k/uL Basophils # 0.1 (0-0.2) k/uL Sodium 135 L (137-145) mmol/L Potassium 3.6 (3.5-5.1) mmol/L Chloride 101 (98-107) mmol/L Carbon Dioxide 20 L (22-30) mmol/L Anion Gap 14 mmol/L BUN 12 (9-20) mg/dL Creatinine 0.87 (0.66-1.25) mg/dL Est GFR (CKD-EPI)AfAm >90 (>60 ml/min/1.73 sqM) Est GFR (CKD-EPI)NonAf >90 (>60 ml/min/1.73 sqM) Glucose 83 (74-99) mg/dL Calcium 10.0 (8.4-10.2) mg/dL Total Bilirubin 0.6 (0.2-1.3) mg/dL AST 38 (17-59) U/L ALT 18 (4-49) U/L Alkaline Phosphatase 109 (38-126) U/L Total Protein 7.3 (6.3-8.2) g/dL Albumin 5.1 H (3.5-5.0) g/dL - EKG Data -: EKG Interpreted by Me (and Dr. Walter ) EKG Comments: Ventricular rate 76, when necessary for 128, QRS 86, QT/QTC 374/420. Normal sinus rhythm sinus arrhythmia. Possible left atrial enlargement. No concern for acute ischemia at this time. Disposition Clinical Impression: Nausea and vomiting, Syncope Disposition: HOME SELF-CARE Condition: Stable Instructions (If sedation given, give patient instructions): Syncope (ED) Additional Instructions: Follow-up with primary care provider tomorrow. Return to ER if condition worsens in any way. Continue to drink lots of fluids. Is patient prescribed a controlled substance at d/c from ED?: No Referrals: None,Stated [Primary Care Provider] - 1-2 days Uriah Ayon [STAFF PHYSICIAN] - 1-2 days
== END 2019-12-07 20:32 | disposition home or self-care (01) ==
LOC: EC 17:22
DX: R11.2 Nausea with vomiting, unspecified (principal); R55 Syncope and collapse; R42 Dizziness and giddiness; F17.200 Nicotine dependence, unspecified, uncomplicated
CPT/HCPCS: 36415; 93005; 80053; 85025; 99284; 96374; 96361 ×2; J2405

== ENCOUNTER 2020-03-09 10:23 | Emergency (ER) | payer OTHER ==
[2020-03-09 10:41] VITALS: BP 123/79; PULSE 67; RESP 18; TEMP 98
[2020-03-09] MEDS ORDERED: Acetaminophen-Codeine 300-30mg TAB PO STA (10:55)
[2020-03-09] MEDS ORDERED: ACET/COD 300 MG/30 MG STARTER PACK 6 TAB BTL PO STA (10:55)
[2020-03-09] MEDS ORDERED: PENICILLIN VK 500MG STARTER 4 TAB BTL PO STA (10:55)
--- NOTE | 2020-03-09 10:56 | ED ---
General Adult HPI - General Chief complaint: Dental/Oral Stated complaint: mouth pain Time Seen by Provider: 03/09/20 10:45 Source: patient, RN notes reviewed, old records reviewed Mode of arrival: ambulatory Limitations: no limitations - History of Present Illness Initial comments: 24-year-old male patient presents to ED for evaluation of dental pain. Patient reports that he has poor dentition however today his tooth began really hurting. This is left upper incisor. Denies any other complaints. Denies any fevers. Systemic: Pt denies fatigue, fever/chills, rash. Pt denies weakness, night sweats, weight loss. Neuro: Pt denies headache, visual disturbances, syncope or pre-syncope. HEENT: Pt denies ocular discharge or irritation, otalgia, rhinorrhea, pharyngitis or notable lymphadenopathy. Cardiopulmonary: Pt denies chest pain, SOB, heart palpitations, dyspnea on exertion. Abdominal/GI: Pt denies abdominal pain, n/v/d. : Pt denies dysuria, burning w/ urination, frequency/urgency. Denies new onset urinary or bowel incontinence. MSK: Pt denies myalgia, loss of strength or function in extremities. Neuro: Pt denies new onset weakness, paresthesias. - Related Data Previous Rx's Medication Instructions Recorded Cephalexin [Keflex] 500 mg PO Q6HR 7 Days #28 cap 11/29/19 Sulfamethox-Tmp 800-160Mg [Bactrim 1 tab PO Q12HR 7 Days #14 tab 11/29/19 DS 800-160 mg] Penicillin V Potassium [Pen Vee K] 500 mg PO QID #40 tablet 03/09/20 Allergies Allergy/AdvReac Type Severity Reaction Status Date / Time No Known Allergies Allergy Verified 03/09/20 10:41 Review of Systems ROS Statement: Those systems with pertinent positive or pertinent negative responses have been documented in the HPI. ROS Other: All systems not noted in ROS Statement are negative. Past Medical History Past Medical History: No Reported History History of Any Multi-Drug Resistant Organisms: None Reported Past Surgical History: No Surgical Hx Reported Past Psychological History: No Psychological Hx Reported Smoking Status: Current every day smoker Past Alcohol Use History: Occasional Past Drug Use History: None Reported General Exam - General Exam Comments Initial Comments: Constitutional: NAD, AOX3, Pt has pleasant affect. HEENT: NC/AT, trachea midline, neck supple, no lymphadenopathy. External ears appear normal, without discharge. Mucous membranes moist. EOM intact. There is no scleral icterus. No pallor noted. Poor dentition is noted. Patient does have multiple teeth missing including there has complaint left upper incisor. There is some mild gum erythema. There is no drainable abscess. Cardiopulmonary: RRR, no murmurs, rubs or gallops, no JVD noted. Lungs CTAB in anterior and posterior mackay. No peripheral edema. Abdominal exam: Abdomen soft and non-distended. Neuro: CN II-XII grossly intact. No nuchal rigidity. MSK: Full active ROM in upper and lower extremities. Limitations: no limitations Course Vital Signs 03/09/20 10:37 Temperature 98 F Pulse Rate 67 Respiratory 18 Rate Blood Pressure 123/79 O2 Sat by Pulse 100 Oximetry Medical Decision Making - Medical Decision Making 24-year-old male patient presented to ED for chief complaint dental pain. Patient with a long history of poor dentition however this pain began getting worse today. Physical exam reveals poor dentition mild gum erythema no abscess. Patient has exposed nerve root. Patient will be discharged with analgesia Penicillin VK and dental as well as primary care follow-up. We return to ED with any worsening symptoms. Case discussed with Dr. Dinh. Disposition Clinical Impression: Pain, dental Disposition: HOME SELF-CARE Condition: Stable Instructions (If sedation given, give patient instructions): Toothache (ED) Additional Instructions: Take antibiotics as directed. Follow-up with dentist as soon as possible. Return to ER if any worsening symptoms. Prescriptions: Penicillin V Potassium [Pen Vee K] 500 mg PO QID #40 tablet Is patient prescribed a controlled substance at d/c from ED?: No Referrals: None,Stated [Primary Care Provider] - 1-2 days Uriah Ayon [STAFF PHYSICIAN] - 1-2 days
== END 2020-03-09 11:09 | disposition home or self-care (01) ==
LOC: EC 10:23
DX: K08.89 Other specified disorders of teeth and supporting structures (principal); K00.7 Teething syndrome; L53.9 Erythematous condition, unspecified; F17.200 Nicotine dependence, unspecified, uncomplicated
CPT/HCPCS: 99283

== ENCOUNTER 2020-04-10 11:21 | Emergency (ER) | payer OTHER ==
[2020-04-10 11:43] VITALS: BP 118/74; PULSE 85; RESP 18; TEMP 97.9
--- NOTE | 2020-04-10 12:18 | ED ---
ENT HPI - General Chief complaint: ENT Stated complaint: Runny nose/wants covid test Time Seen by Provider: 04/10/20 12:09 Source: patient, RN notes reviewed Mode of arrival: ambulatory Limitations: no limitations - History of Present Illness Initial comments: 25-year-old male presents emergency Department with chief complaint nasal congestion. Patient is here requesting coronavirus testing. Patient states that he is concernof his symptoms as well as his significant other is n. Patient states he was drinking this weekend sharing drinks in which people tested positive. Patient has no fevers no shortness breath no chest pain no other symptoms noted. - Related Data Previous Rx's Medication Instructions Recorded Cephalexin [Keflex] 500 mg PO Q6HR 7 Days #28 cap 11/29/19 Sulfamethox-Tmp 800-160Mg [Bactrim 1 tab PO Q12HR 7 Days #14 tab 11/29/19 DS 800-160 mg] Penicillin V Potassium [Pen Vee K] 500 mg PO QID #40 tablet 03/09/20 Allergies Allergy/AdvReac Type Severity Reaction Status Date / Time No Known Allergies Allergy Verified 03/09/20 10:41 Review of Systems ROS Statement: Those systems with pertinent positive or pertinent negative responses have been documented in the HPI. ROS Other: All systems not noted in ROS Statement are negative. Past Medical History Past Medical History: No Reported History History of Any Multi-Drug Resistant Organisms: None Reported Past Surgical History: No Surgical Hx Reported Past Psychological History: No Psychological Hx Reported Smoking Status: Current every day smoker Past Alcohol Use History: Occasional Past Drug Use History: None Reported General Exam Limitations: no limitations General appearance: alert, in no apparent distress Head exam: Present: atraumatic, normocephalic, normal inspection Eye exam: Present: normal appearance, PERRL, EOMI. Absent: scleral icterus, conjunctival injection, periorbital swelling ENT exam: Present: normal exam, normal oropharynx, mucous membranes moist Neck exam: Present: normal inspection, full ROM. Absent: tenderness, meningi smus, lymphadenopathy Respiratory exam: Present: normal lung sounds bilaterally. Absent: respiratory distress, wheezes, rales, rhonchi, stridor Cardiovascular Exam: Present: regular rate, normal rhythm, normal heart sounds. Absent: systolic murmur, diastolic murmur, rubs, gallop, clicks GI/Abdominal exam: Present: soft, normal bowel sounds. Absent: distended, tenderness, guarding, rebound, rigid Back exam: Absent: CVA tenderness (R), CVA tenderness (L) Neurological exam: Present: alert, oriented X3 Skin exam: Present: warm, dry, intact, normal color. Absent: rash Course Vital Signs 04/10/20 11:37 Temperature 97.9 F Pulse Rate 85 Respiratory 18 Rate Blood Pressure 118/74 O2 Sat by Pulse 100 Oximetry Medical Decision Making - Medical Decision Making patient has pending coronavirus testing. Patient recalled for positive test. Patient is essentially asymptomatic and vitals are stable. Disposition Clinical Impression: Encounter for laboratory testing for COVID-19 virus Disposition: HOME SELF-CARE Condition: Undetermined Instructions (If sedation given, give patient instructions): Upper Respiratory Infection (ED) Additional Instructions: Please return to the Emergency Department if symptoms worsen or any other concerns. Is patient prescribed a controlled substance at d/c from ED?: No Referrals: None,Stated [Primary Care Provider] - 1-2 days Time of Disposition: 12:20
== END 2020-04-10 12:28 | disposition home or self-care (01) ==
LOC: EC 11:21
DX: Z20.828 Contact with and (suspected) exposure to other viral communicable diseases (principal); F17.200 Nicotine dependence, unspecified, uncomplicated
CPT/HCPCS: 87635; 99283

== ENCOUNTER 2020-07-27 23:23 | Emergency (ER) | payer OTHER ==
[2020-07-27 23:26] VITALS: BP 125/74; PULSE 76; RESP 18; TEMP 98.1
[2020-07-27] MEDS ORDERED: LIDOCAINE 1%-EPI 1:100,000 20 ML VIAL SQ STA (23:37)
--- NOTE | 2020-07-27 23:38 | ED ---
Wound/Laceration HPI - General Chief Complaint: Wound/Laceration Stated Complaint: Left wrist lacteration Time Seen by Provider: 07/27/20 23:36 Source: patient, RN notes reviewed, old records reviewed Mode of arrival: ambulatory Limitations: no limitations - History of Present Illness Initial Comments: This is a 25-year-old male who sustained puncture wound to his last wrist. Mild bleeding at first but no significant current bleeding. Patient denies any other complaints or injury states his full range of motion of that hand and no significant pain. Tetanus is up-to-date but no other significant complaints -: hour(s) Extremity Location: Left: Forearm (Puncture wound) Place: home Context: accidental Associated Symptoms: none Treatments Prior to Arrival: bandage - Related Data Previous Rx's Medication Instructions Recorded Cephalexin [Keflex] 500 mg PO Q6HR 7 Days #28 cap 11/29/19 Sulfamethox-Tmp 800-160Mg [Bactrim 1 tab PO Q12HR 7 Days #14 tab 11/29/19 DS 800-160 mg] Penicillin V Potassium [Pen Vee K] 500 mg PO QID #40 tablet 03/09/20 Allergies Allergy/AdvReac Type Severity Reaction Status Date / Time No Known Allergies Allergy Verified 07/27/20 23:26 Review of Systems ROS Statement: Those systems with pertinent positive or pertinent negative responses have been documented in the HPI. ROS Other: All systems not noted in ROS Statement are negative. Past Medical History Past Medical History: No Reported History History of Any Multi-Drug Resistant Organisms: None Reported Past Surgical History: No Surgical Hx Reported Past Psychological History: No Psychological Hx Reported Smoking Status: Current every day smoker Past Alcohol Use History: Occasional Past Drug Use History: None Reported General Exam Limitations: no limitations General appearance: alert, in no apparent distress Head exam: Present: atraumatic, normocephalic, normal inspection Eye exam: Present: normal appearance, PERRL, EOMI. Absent: scleral icterus, conjunctival injection, periorbital swelling ENT exam: Present: normal exam, mucous membranes moist Neck exam: Present: normal inspection. Absent: tenderness, meningismus, lymphadenopathy Respiratory exam: Present: normal lung sounds bilaterally. Absent: respiratory distress, wheezes, rales, rhonchi, stridor Cardiovascular Exam: Present: regular rate, normal rhythm, normal heart sounds. Absent: systolic murmur, diastolic murmur, rubs, gallop, clicks GI/Abdominal exam: Present: soft, normal bowel sounds. Absent: distended, tenderness, guarding, rebound, rigid Extremities exam: Present: normal inspection, full ROM, normal capillary refill, other (Left wrist puncture wound, neurovascular intact with full range of motion of left hand). Absent: tenderness, pedal edema, joint swelling, calf tenderness Back exam: Present: normal inspection Neurological exam: Present: alert, oriented X3, CN II-XII intact Psychiatric exam: Present: normal affect, normal mood Skin exam: Present: warm, dry, intact, normal color. Absent: rash Course Vital Signs 07/27/20 23:24 Temperature 98.1 F Pulse Rate 76 Respiratory 18 Rate Blood Pressure 125/74 O2 Sat by Pulse 99 Oximetry - Reevaluation(s) Reevaluation #1: Medical record is reviewed Patient has improved symptoms here in the ER Patient feels better Patient family informed results questions are answered Patient feels good for discharge Procedures - Laceration Laceration #1 Consent Obtained: verbal consent Indication: laceration Site: other (Patient has puncture wound to right wrist) Size (cm): 1 Description: linear Depth: simple, single layer Pre-repair: wound explored Type of Sutures: nylon Size of Sutures: 4-0 Technique: simple, interrupted Complications: pain Patient Tolerated Procedure: well Medical Decision Making - Medical Decision Making 25 mailed ER with puncture wound of left wrist from knife, patient has no neurovascular injury, no tenderness injury full range of motion of hand, sutures are repaired and patient can be discharged home Disposition Clinical Impression: Laceration, Puncture wound of wrist, left Disposition: HOME SELF-CARE Condition: Good Instructions (If sedation given, give patient instructions): Laceration (ED) Is patient prescribed a controlled substance at d/c from ED?: No Referrals: None,Stated [Primary Care Provider] - 1-2 days
[2020-07-27] MEDS ORDERED: CEPHALEXIN 500MG STARTER PACK 4 CAP BTL PO STA (23:49)
[2020-07-27] MEDS ORDERED: CEPHALEXIN 500 MG CAP PO STA (23:49)
[2020-07-28] MEDS ORDERED: ACET/COD 300 MG/30 MG STARTER PACK 6 TAB BTL PO STA (00:13)
== END 2020-07-28 00:29 | disposition home or self-care (01) ==
LOC: EC 23:23
DX: S61.532A Puncture wound without foreign body of left wrist, initial encounter (principal); F17.200 Nicotine dependence, unspecified, uncomplicated; W27.8XXA Contact with other nonpowered hand tool, initial encounter
CPT/HCPCS: 12001; 99283

== ENCOUNTER 2020-11-14 07:29 | Emergency (ER) | payer OTHER ==
[2020-11-14 07:33] VITALS: BP 127/80; PULSE 91; RESP 18; TEMP 98
--- NOTE | 2020-11-14 07:59 | XR ---
EXAMINATION TYPE: XR foot complete RT DATE OF EXAM: 11/14/2020 CLINICAL HISTORY: Tarsal and metatarsal pain after injury TECHNIQUE: Frontal, lateral, and oblique images of the right foot are obtained. COMPARISON: None FINDINGS: There is no acute fracture/dislocation evident in the right foot. The joint spaces in the right foot appear within normal limits. The overlying soft tissue appears unremarkable. IMPRESSION: There is no acute fracture or dislocation in the right foot.
--- NOTE | 2020-11-14 08:05 | ED ---
Lower Extremity Injury HPI - General Chief Complaint: Extremity Injury, Lower Stated Complaint: ankle & knee pain Time Seen by Provider: 11/14/20 07:33 Source: patient Mode of arrival: ambulatory Limitations: no limitations - History of Present Illness Initial Comments: Patient is a 25-year-old male presenting to the emergency Department with complaints of right foot pain for the past 2 days. Patient states he was carrying an air conditioner when he accidentally dropped it, he twisted his left knee but also twisted his right foot. He states his knee is feeling better and feels like just a bruise but he continues to have pain in his right foot. He states his employer wanted him to be seen before he went back to work. He denies any previous injuries or surgeries to his right foot. He denies any other injuries. He has no further complaints. - Related Data Previous Rx's Medication Instructions Recorded Cephalexin [Keflex] 500 mg PO Q6HR 7 Days #28 cap 11/29/19 Sulfamethox-Tmp 800-160Mg [Bactrim 1 tab PO Q12HR 7 Days #14 tab 11/29/19 DS 800-160 mg] Penicillin V Potassium [Pen Vee K] 500 mg PO QID #40 tablet 03/09/20 Allergies Allergy/AdvReac Type Severity Reaction Status Date / Time No Known Allergies Allergy Verified 11/14/20 07:32 Review of Systems ROS Statement: Those systems with pertinent positive or pertinent negative responses have been documented in the HPI. ROS Other: All systems not noted in ROS Statement are negative. Past Medical History Past Medical History: No Reported History History of Any Multi-Drug Resistant Organisms: None Reported Past Surgical History: No Surgical Hx Reported Past Psychological History: No Psychological Hx Reported Smoking Status: Current every day smoker Past Alcohol Use History: Occasional Past Drug Use History: None Reported General Exam - General Exam Comments Initial Comments: GENERAL: Patient is well-developed and well-nourished. Patient is nontoxic and in no acute distress. HEAD: Atraumatic, normocephalic. EYES: Pupils equal round and reactive to light, extraocular movements intact, sclera anicteric, conjunctiva are normal. Eyelids were unremarkable. ENT: Nares patent, oropharynx clear without exudates. Moist mucous membranes. NECK: Normal range of motion, supple without lymphadenopathy or JVD. LUNGS: Unlabored respirations. Breath sounds clear to auscultation bilaterally and equal. No wheezes rales or rhonchi. HEART: Regular rate and rhythm without murmurs, rubs or gallops. ABDOMEN: Soft, nontender, normoactive bowel sounds. No guarding, no rebound. No masses appreciated. : Deferred MUSCULOSKELETAL: Patient has full range of motion of his left knee, he does have a mild bruise noted to the lateral aspect. No swelling, no deformity. Patient has some pain with palpation of the dorsal aspect of the right foot, neurovascular intact, no deformity seen. Normal range of motion of the right ankle. No clubbing or cyanosis. SKIN: Warm, Dry, normal turgor, no rashes or lesions noted. Limitations: no limitations Course Vital Signs 11/14/20 07:30 Temperature 98.0 F Pulse Rate 91 Respiratory 18 Rate Blood Pressure 127/80 O2 Sat by Pulse 100 Oximetry Medical Decision Making - Medical Decision Making Patient is a 25-year-old male here for right foot pain after he twisted it 2 days ago. X-rays today show no acute fractures dislocations. Discussed with patient this is most likely foot sprain. Recommended ice to the area, ibuprofen for discomfort. He is in agreement with this plan of care. He is stable for discharge. Disposition Clinical Impression: Right foot sprain Disposition: HOME SELF-CARE Condition: Stable Instructions (If sedation given, give patient instructions): Foot Sprain (ED) Additional Instructions: Please return to the Emergency Department if symptoms worsen or any other concerns. Recommend ice the area, Tylenol or ibuprofen for discomfort. If symptoms persist after 1-2 weeks, follow up with your primary care physician. Is patient prescribed a controlled substance at d/c from ED?: No Referrals: None,Stated [Primary Care Provider] - 1-2 days Time of Disposition: 08:05
== END 2020-11-14 08:35 | disposition home or self-care (01) ==
LOC: EC 07:29
DX: S93.601A Unspecified sprain of right foot, initial encounter (principal); F17.200 Nicotine dependence, unspecified, uncomplicated; X50.1XXA Overexertion from prolonged static or awkward postures, initial encounter; Y93.89 Activity, other specified
CPT/HCPCS: 99283

== ENCOUNTER 2021-04-09 07:27 | Emergency (ER) | payer OTHER ==
[2021-04-09 07:41] VITALS: BP 116/79; PULSE 75; RESP 18; TEMP 97.9
[2021-04-09] MEDS ORDERED: ONDANSETRON ODT 4 MG TAB PO STA (07:58)
--- NOTE | 2021-04-09 08:16 | XR ---
EXAMINATION TYPE: XR chest 2V DATE OF EXAM: 04/09/2021 COMPARISON: 11/29/2018 TECHNIQUE: PA and lateral views submitted. HISTORY: Cough FINDINGS: The lungs are clear and there is no pneumothorax, pleural effusion, or focal pneumonia. Heart size normal. No overt failure. Mild hyperinflation. Correlate for COPD or asthma. IMPRESSION: 1. No acute process.
[2021-04-09] MEDS ORDERED: ONDANSETRON 4 MG ODT STARTER PACK 2 TAB BTL PO STA (09:28)
--- NOTE | 2021-04-09 09:33 | ED ---
URI HPI - General Chief Complaint: Upper Respiratory Infection Stated Complaint: congestion & abd pain Time Seen by Provider: 04/09/21 07:44 Source: patient, RN notes reviewed Mode of arrival: ambulatory Limitations: no limitations - History of Present Illness Initial Comments: Patient is a 26-year-old male that presents to the emergency department comp laining of nasal drainage sinus congestion cough with some nausea. He notes that he has not had any sick contacts recently. He is otherwise well in no apparent distress or pain. Patient notes that he can emergency room to get evaluated for upper if there are tract issues. He denied chest pain shortness breath headache nausea vomiting diarrhea constipation fever fatigue chills. - Related Data Previous Rx's Medication Instructions Recorded Cephalexin [Keflex] 500 mg PO Q6HR 7 Days #28 cap 11/29/19 Sulfamethox-Tmp 800-160Mg [Bactrim 1 tab PO Q12HR 7 Days #14 tab 11/29/19 DS 800-160 mg] Penicillin V Potassium [Pen Vee K] 500 mg PO QID #40 tablet 03/09/20 Allergies Allergy/AdvReac Type Severity Reaction Status Date / Time No Known Allergies Allergy Verified 04/09/21 07:41 Review of Systems ROS Statement: Those systems with pertinent positive or pertinent negative responses have been documented in the HPI. ROS Other: All systems not noted in ROS Statement are negative. Past Medical History Past Medical History: No Reported History History of Any Multi-Drug Resistant Organisms: None Reported Past Surgical History: No Surgical Hx Reported Past Psychological History: No Psychological Hx Reported Smoking Status: Current every day smoker Past Alcohol Use History: Occasional Past Drug Use History: None Reported General Exam Limitations: no limitations General appearance: alert, in no apparent distress Head exam: Present: atraumatic, normocephalic, normal inspection Eye exam: Present: normal appearance, PERRL, EOMI. Absent: scleral icterus, conjunctival injection, periorbital swelling ENT exam: Present: normal exam, mucous membranes moist Neck exam: Present: normal inspection Respiratory exam: Present: normal lung sounds bilaterally. Absent: respiratory distress, wheezes, rales, rhonchi, stridor Cardiovascular Exam: Present: regular rate, normal rhythm, normal heart sounds. Absent: systolic murmur, diastolic murmur, rubs, gallop, clicks GI/Abdominal exam: Present: soft, normal bowel sounds. Absent: distended, tenderness, guarding, rebound, rigid Extremities exam: Present: normal inspection, full ROM, normal capillary refill. Absent: tenderness, pedal edema, joint swelling, calf tenderness Neurological exam: Present: alert, oriented X3 Psychiatric exam: Present: normal affect, normal mood Skin exam: Present: warm, dry, intact, normal color. Absent: rash Course Vital Signs 04/09/21 07:37 Temperature 97.9 F Pulse Rate 75 Respiratory 18 Rate Blood Pressure 116/79 O2 Sat by Pulse 100 Oximetry Medical Decision Making - Medical Decision Making 26 she'll male complaining of nasal congestion sinus drainage and nausea. Covid test, chest x-ray ordered. Covid test negative. Chest x-ray shows no acute cardiopulmonary process. Patient most likely experiencing upper respiratory tract issues. Patient will discharge home with conservative management. Zofran starter pack be given. Case discussed with Dr. Salmeron, patient discharge home. - Lab Data Lab Results 04/09/21 Range/Units 07:58 Coronavirus (PCR) Not Detected (Not Detectd) Disposition Clinical Impression: Acute upper respiratory infection Disposition: HOME SELF-CARE Condition: Stable Instructions (If sedation given, give patient instructions): Upper Respiratory Infection (ED) Additional Instructions: Please return to the Emergency Department if symptoms worsen or any other concerns. Follow-up with primary care 1-2 days. Take Tylenol Motrin as needed for any aches pains fevers. Take Zofran as prescribed. Can use [id number] decongestants as needed for nasal congestion. Is patient prescribed a controlled substance at d/c from ED?: No Referrals: None,Stated [Primary Care Provider] - 1-2 days Time of Disposition: 09:32
== END 2021-04-09 09:47 | disposition home or self-care (01) ==
LOC: EC 07:27
DX: J06.9 Acute upper respiratory infection, unspecified (principal); R10.9 Unspecified abdominal pain; F17.200 Nicotine dependence, unspecified, uncomplicated; Z20.822 Contact with and (suspected) exposure to COVID-19
CPT/HCPCS: 87635; 71046; 99284; S0119

== ENCOUNTER 2021-06-28 20:30 | Emergency (ER) | payer OTHER ==
[2021-06-28 22:48] VITALS: BP 104/69; PULSE 105; RESP 20; TEMP 98.3
[2021-06-28] MEDS ORDERED: ACETAMINOPHEN TAB 500 MG TAB PO STA (22:48)
[2021-06-28] MEDS ORDERED: IBUPROFEN 400 MG TAB PO STA (22:51)
[2021-06-28 23:25] LABS: Amorphous Sediment,Urine Rare /hpf; Appearance,Urine Cloudy (Clear); Bacteria,Urine Rare /hpf; Bilirubin,Urine Negative (Negative); Blood,Urine Negative (Negative); Color,Urine Yellow; Glucose,Urine (UA) Negative (Negative); Ketones,Urine Negative (Negative); Leukocyte Esterase,Urine Negative (Negative); Mucus,Urine Moderate /hpf; Nitrite,Urine Negative (Negative); Protein,Urine Negative (Negative); RBC,Urine 1 /hpf (0-5); Specific Gravity,Urine 1.021 (1.001-1.035); Urobilinogen,Urine <2.0 mg/dL (<2.0); WBC,Urine 3 /hpf (0-5)
[2021-06-28] MEDS ORDERED: CLINDAMYCIN 150 MG CAP PO STA (23:35)
--- NOTE | 2021-06-28 23:50 | ED ---
Fever HPI - General Chief Complaint: Fever Stated Complaint: Fever,headache,body ache Time Seen by Provider: 06/28/21 22:46 Source: patient, RN notes reviewed Mode of arrival: ambulatory Limitations: no limitations - History of Present Illness Initial Comments: This is a pleasant 26-year-old male who comes to the ER complaining of a fever, headache, body aches. Patient states these symptoms started today. Patient denies any shortness of breath. No cough. No nausea or vomiting. No change in bowel when she urination. No skin rashes or lesions. No chest pain or shortness of breath. No abdominal pain. No neck stiffness. Patient had 6 dental extractions yesterday. Patient states he's been on penicillin for about one week. Patient denies any difficulty swallowing. He denies any increased pain in the oral area. Patient is a cigarette smoker. No other significant past medical history. Not immunized against COVID-19. MD Complaint: fever - Related Data Home Medications Medication Instructions Recorded Confirmed Ibuprofen [Motrin] 600 mg PO Q8HR PRN 06/28/21 06/28/21 Penicillin V Potassium [Pen Vee K] 250 mg PO Q6H 06/28/21 06/28/21 Previous Rx's Medication Instructions Recorded clindamycin HCL [Cleocin] 300 mg PO Q6H #40 cap 06/28/21 Allergies Allergy/AdvReac Type Severity Reaction Status Date / Time No Known Allergies Allergy Verified 06/28/21 22:53 Review of Systems ROS Statement: Those systems with pertinent positive or pertinent negative responses have been documented in the HPI. ROS Other: All systems not noted in ROS Statement are negative. Past Medical History Past Medical History: No Reported History History of Any Multi-Drug Resistant Organisms: None Reported Past Surgical History: No Surgical Hx Reported Past Psychological History: No Psychological Hx Reported Smoking Status: Current every day smoker Past Alcohol Use History: Occasional Past Drug Use History: None Reported General Exam - General Exam Comments Initial Comments: This is a generally healthy-appearing 26-year-old male who presents to the emergency department and no significant distress. Does not appear to be ill or toxic. Limitations: no limitations General appearance: alert, in no apparent distress Head exam: Present: atraumatic, normocephalic, normal inspection Eye exam: Present: normal appearance, PERRL, EOMI. Absent: scleral icterus, conjunctival injection, periorbital swelling ENT exam: Present: normal exam, mucous membranes moist, TM's normal bilaterally, normal external ear exam, other (Dental extraction sites to the upper dental area appeared to be healing adequately. No evidence of abscess or intraoral cellulitis.). Absent: mucous membranes dry Expanded Ear exam: Present: normal external inspection Throat exam: negative: tonsillar erythema, tonsillomegaly, tonsillar exudate, R peritonsillar mass, L peritonsillar mass Neck exam: Present: normal inspection, full ROM, other (Negative Brudzinski's and Kernig's). Absent: tenderness, meningismus, lymphadenopathy Respiratory exam: Present: normal lung sounds bilaterally. Absent: respiratory distress, wheezes, rales, rhonchi, stridor Cardiovascular Exam: Present: regular rate, normal rhythm, normal heart sounds. Absent: systolic murmur, diastolic murmur, rubs, gallop, clicks GI/Abdominal exam: Present: soft, normal bowel sounds. Absent: distended, tenderness, guarding, rebound, rigid Extremities exam: Present: normal inspection, full ROM, normal capillary refill. Absent: tenderness, pedal edema, joint swelling, calf tenderness Back exam: Present: normal inspection Neurological exam: Present: alert, oriented X3, CN II-XII intact Psychiatric exam: Present: normal affect, normal mood Skin exam: Present: warm, dry, intact, normal color. Absent: rash Course Vital Signs 06/28/21 06/28/21 21:10 22:46 Temperature 100.9 F H 98.3 F Pulse Rate 119 H 105 H Respiratory 22 20 Rate Blood Pressure 98/60 104/69 O2 Sat by Pulse 99 97 Oximetry Medical Decision Making - Medical Decision Making Patient's presenting symptomology is consistent with viral syndrome. No neck stiffness. Not consistent with meningitis. Chest x-ray was clear. COVID-19 testing negative. Discussed possibility of false negative testing. Going to switch the patient from Pen-Vee K to clindamycin based on the fact he's been on an antibiotic for one week and now has fever. However I believe this is more consistent with viral syndrome. We'll have the patient start clindamycin and call his dentist tomorrow. Patient voiced understanding of all instructions. Released in stable and improved condition. Patient was told to return to the ER for any signs or symptoms worsen. Told to return immediately if any other problems arise. All questions answered. Tr eatment plan discussed. Patient in agreement - Lab Data Lab Results 06/28/21 06/28/21 06/28/21 Range/Units 21:12 23:03 23:03 Urine Color Yellow Urine Appearance Cloudy (Clear) Urine pH 7.0 (5.0-8.0) Ur Specific [place] 1.021 (1.001-1.035) Urine Protein Negative (Negative) Urine Glucose (UA) Negative (Negative) Urine Ketones Negative (Negative) Urine Blood Negative (Negative) Urine Nitrite Negative (Negative) Urine Bilirubin Negative (Negative) Urine Urobilinogen <2.0 (<2.0) mg/dL Ur Leukocyte Esterase Negative (Negative) Urine RBC 1 (0-5) /hpf Urine WBC 3 (0-5) /hpf Amorphous Sediment Rare H (None) /hpf Urine Bacteria Rare H (None) /hpf Urine Mucus Moderate H (None) /hpf Coronavirus (PCR) Not Detected (Not Detectd) Influenza Type A RNA Not Detected (Not Detectd) Influenza Type B (PCR) Not Detected (Not Detectd) Disposition Clinical Impression: Pain, dental, Viral syndrome Disposition: HOME SELF-CARE Condition: Stable Instructions (If sedation given, give patient instructions): Viral Syndrome (ED), Toothache (ED) Additional Instructions: Follow-up with your regular physician as directed. Return to the ER immediately if any symptoms worsen, new symptoms arise, or any other problems develop. Call your dentist tomorrow. Start the clindamycin as discussed. Alternate acetaminophen 500 mg and ibuprofen 400 mg every 3 hours for fever control. Increase fluids. Prescriptions: clindamycin HCL [Cleocin] 300 mg PO Q6H #40 cap Is patient prescribed a controlled substance at d/c from ED?: No Referrals: None,Stated [Primary Care Provider] - 1-2 days
--- NOTE | 2021-06-28 23:59 | XR ---
EXAMINATION TYPE: XR chest 1V DATE OF EXAM: 06/28/2021 COMPARISON: 04/09/2021 HISTORY: Fever TECHNIQUE: Single view FINDINGS: Heart and mediastinum are normal. Lungs are clear. Diaphragm is normal. Bony thorax is inta ct. IMPRESSION: Normal chest. No change.
== END 2021-06-29 00:16 | disposition home or self-care (01) ==
LOC: EC 20:30
DX: B34.9 Viral infection, unspecified (principal); F17.200 Nicotine dependence, unspecified, uncomplicated; Z20.822 Contact with and (suspected) exposure to COVID-19
CPT/HCPCS: 71045; 81001; 87502; 87635; 99284

== ENCOUNTER 2023-03-09 16:12 | Emergency (ER) | payer OTHER ==
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
[2023-03-09 17:06] LABS: Basophils % (A) 0 %; Eosinophils # (A) 0.1 k/uL (0-0.7); Eosinophils % (A) 1 %; HCT 42.3 % (39.0-53.0); HGB 14.2 gm/dL (13.0-17.5); Lymphocytes # (A) 3.5 k/uL (1.0-4.8); Lymphocytes % (A) 33 %; MCH 29.1 pg (25.0-35.0); MCHC 33.5 g/dL (31.0-37.0); MCV 86.8 fL (80.0-100.0); Mean Platelet Volume 7.1; Monocytes # (A) 0.5 k/uL (0-1.0); Monocytes % (A) 5 %; Neutrophils # (A) 6.2 k/uL (1.3-7.7); Neutrophils % (A) 58 %; Platelet Count 280 k/uL (150-450); RBC 4.88 m/uL (4.30-5.90); RDW 12.7 % (11.5-15.5); WBC 10.6 k/uL (3.8-10.6)
[2023-03-09 17:23] LABS: INR 1.2 (<1.2); Partial Thromboplastin Time 23.1 sec (22.0-30.0); Prothrombin Time 12.3 sec (9.0-12.0)
[2023-03-09 17:47] LABS: ALT 131 U/L (4-49); AST 117 U/L (17-59); African American GFR (CKD) >90 (>60 ml/min/1.73 sqM); Albumin 4.2 g/dL (3.5-5.0); Alkaline Phosphatase 64 U/L (38-126); Anion Gap 13 mmol/L; Blood Urea Nitrogen 18 mg/dL (9-20); Calcium 9.5 mg/dL (8.4-10.2); Carbon Dioxide 26 mmol/L (22-30); Chloride 100 mmol/L (98-107); Glucose 91 mg/dL (74-99); Non-African American GFR(CKD) >90 (>60 ml/min/1.73 sqM); Potassium 3.7 mmol/L (3.5-5.1); Sodium 139 mmol/L (137-145); Total Bilirubin 0.6 mg/dL (0.2-1.3); Total Protein 6.6 g/dL (6.3-8.2)
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
[2023-03-09] MEDS ORDERED: HYDROmorphone 0.5 MG/0.5 ML SYRINGE IVP STA (18:07)
[2023-03-09 18:20] VITALS: BP 122/91; PULSE 80; RESP 20
[2023-03-09 19:10] VITALS: TEMP 97.8
== END 2023-03-09 19:00 | disposition home or self-care (01) ==
LOC: EC 16:12
DX: S02.2XXA Fracture of nasal bones, initial encounter for closed fracture (principal); I51.7 Cardiomegaly; F17.200 Nicotine dependence, unspecified, uncomplicated; Y09 Assault by unspecified means
CPT/HCPCS: 36415; 93005; 80053; 85025; 85610; 85730; 72125; 70486; 70450; 99284; 96374; J1170

== ENCOUNTER → 2023-06-25 | Outpatient (CLI) | payer OTHER ==
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
== END | disposition home or self-care (01) ==
LOC: RADCTMAIN 09:31
PROVIDERS: ATTEND Physician Assistant
DX: G93.89 Other specified disorders of brain (principal); S02.113A Unspecified occipital condyle fracture, initial encounter for closed fracture; S06.5XAA Traumatic subdural hemorrhage with loss of consciousness status unknown, initial encounter; X58.XXXA Exposure to other specified factors, initial encounter
CPT/HCPCS: 70450; 72125